=== PATIENT | female | born 1960 | race African-American/Black ===

== ENCOUNTER 2020-03-27 15:38 | Emergency (ER) | payer OTHER ==
[~2020-03-27] VITALS: Ht 165.1 cm; Wt 97.5 kg
[2020-03-27] MEDS ORDERED: NEURONTIN300 MG PO (15:56)
[2020-03-27] MEDS ORDERED: NORVASC 2.5 MG2.5 M1 PO (15:56)
[2020-03-27] MEDS ORDERED: FLONASE 0.05%50 MCG NARES (15:57)
[2020-03-27] MEDS ORDERED: FLOMAX0.4 MG PO (15:57)
[2020-03-27] MEDS ORDERED: APAP W/CODEINE1 TA2 PO (17:01)
[2020-03-27] MEDS ORDERED: MEDROLDOSEPACK PO (17:01)
[2020-03-27] MEDS ORDERED: ONDANSETRON HCL4 M2 PO (17:01)
[2020-03-27 17:15] VITALS: BP 169/74
== END 2020-03-27 17:16 | disposition home or self-care (01) ==
LOC: M.ERS 15:38
DX: J06.9 Acute upper respiratory infection, unspecified (principal); I10 Essential (primary) hypertension; Z20.828 Contact with and (suspected) exposure to other viral communicable diseases